=== PATIENT | male | born 1995 | race Caucasian/White ===

== ENCOUNTER 2017-10-20 20:43 | Emergency (ER) | payer OTHER ==
[~2017-10-20] VITALS: Ht 180.3 cm; Wt 108.9 kg
[~2017-10-20 20:43] MED LIST: ACET325 PO; HYDR1TAB94 PO; LORA10ER PO; METPHE10; OMEP20ER PO; PROM25 PO; RXCODGUASY PO
[2017-10-20] MEDS ORDERED: IBUP800 PO (22:45)
== END 2017-10-20 22:50 | disposition home or self-care (01) ==
LOC: ER 20:43
DX: S20.211A Contusion of right front wall of thorax, initial encounter (principal); W18.30XA Fall on same level, unspecified, initial encounter; Y93.51 Activity, roller skating (inline) and skateboarding
CPT/HCPCS: 71046; 99283